=== PATIENT | male | born 1945 | race Caucasian/White ===

== ENCOUNTER → 2019-07-01 09:19 | Outpatient (CLI) | payer OTHER, SELFPAY ==
--- NOTE | 2019-07-01 | DI.US.S_ITS ---
PROCEDURE: US SOFT TISSUE HEAD AND NECK INDICATIONS: LOCALIZED SWELLING, MASS AND LUMP TECHNIQUE: Real-time scanning was performed of the neck region of interest, with image documentation. COMPARISON: None. FINDINGS: Multiple grayscale and color Doppler images of the neck and submandibular region were acquired targeting the patient directed area of interest which correlated with the midline submandibular region. There is a prominent lymph node measuring approximately 8 mm in AP dimension. This is oval in shape with uniform cortical thickening and visualization of a central fatty hilum. Additional prominent bilateral lymph nodes in the neck or visualized, largest on the right side measuring up to 9 mm in AP dimension. These are also oval in shape with uniform cortical thickening and preservation of a central fatty hilum. IMPRESSION: Prominent lymph node in the midline submandibular region correlating with palpable area of concern. There are similar, additional lymph nodes seen in the bilateral neck. Findings likely represent reactive lymph nodes from infectious/inflammatory process. Recommend clinical followup to document resolution. However, further evaluation with fine needle aspiration can be considered if symptoms persist or progress. Dictated by: Jasper Morejon M.D. on 07/01/2019 at 15:16 Approved by: Jasper Morejon M.D. on 07/01/2019 at 15:22
== END ==
PROVIDERS: PCP Family Medicine; Visit Provider Otolaryngology
DX: R59.0 Localized enlarged lymph nodes (principal)
CPT/HCPCS: 76536

== ENCOUNTER → 2019-08-20 07:55 | Outpatient (CLI) | payer OTHER, SELFPAY ==
--- NOTE | 2019-08-20 | DI.CT.S_ITS ---
PROCEDURE: CT SOFT TISSUE NECK W CON INDICATIONS: Follicular lymphoma, unspecified, unspecified site TECHNIQUE: After the administration of intravenous contrast, 3.0 mm axial sections acquired from the sella to the aortic arch. Additional oblique axial 3.0 mm sections acquired through the pharynx. 3 mm thick coronal and sagittal reformats were generated. For radiation dose reduction, the following was used: automated exposure control. COMPARISON: [facility], CT, CT CHEST ABD PEL W CON, 08/20/2019, 9:08. FINDINGS: Image quality: Excellent. Lymph nodes: Numerous enlarged supraclavicular lymph nodes are seen, with the largest solitary lymph node seen on the left measuring 15 x 11 mm, as on series 2 image 54. Numerous borderline prominent lymph nodes are seen throughout the neck. The largest solitary left level IIb lymph node measures 11 x 8 mm. There is partial visualization of dominant enlarged axillary lymph nodes. There is also partial visualization of enlarged mediastinal lymph nodes. Vessels: Visualized vasculature appears patent. Neck spaces: The oropharynx, nasopharynx, and pharynx demonstrate no mucosal lesions. The vocal cords, false vocal cords, pyriform sinuses, epiglottis, vallecula, and tongue base all appear normal. Extramucosal spaces appear unremarkable. Glands: The parotid and submandibular glands appear normal. Thyroid gland demonstrates no significant CT abnormality. Miscellaneous: Visualized brain and orbits appear normal. Lung apices appear clear. Superficial soft tissues appear normal. Bones: No suspicious bony lesions. Visualized sinuses and mastoids appear unremarkable. Age-appropriate bony degenerative changes are seen. There is fusion seen at the C5-C6 level. Please correlate with known patient history. IMPRESSION: Numerous enlarged and borderline prominent lymph nodes are seen throughout the neck as well as within the supraclavicular, mediastinal, and axillary regions, which are consistent with the given history of lymphoma. C5-C6 vertebral body fusion. Dictated by: Jack Landers M.D. on 08/20/2019 at 9:50 Approved by: Jack Landers M.D. on 08/20/2019 at 9:54
--- NOTE | 2019-08-20 08:13 | DI.CT.S_ITS ---
PROCEDURE: CT CHEST ABD PEL W CON INDICATIONS: Follicular lymphoma, unspecified, unspecified site TECHNIQUE: After the administration of oral and intravenous contrast, 5 mm thick sections acquired from the lung apices to the symphysis. 5 mm coronal and sagittal reformats were performed, with additional 7 mm coronal MIP reformats through the lungs. For radiation dose reduction, the following was used: automated exposure control, adjustment of mA and/or kV according to patient size. COMPARISON: None. FINDINGS: Image quality: Excellent. CHEST: Lungs and pleura: No acute airspace opacities. Tiny pleural based nodules in the lateral right upper and left upper lobes measuring up to 3.5 mm (3/158, 3/163). There is a triangular fissural nodule along the right minor fissure (3/191 measuring up to 5 mm. No other suspicious lung nodules or masses. No pleural effusions or pneumothorax. Central and peripheral airways appear patent and normal in caliber. Mediastinum: Heart size is normal. No pericardial effusion. Numerous minimally prominent superior mediastinal lymph nodes. Confluent subcarinal leonardo tissue. No hilar adenopathy. Multiple small right and left epicardial fat pad lymph nodes. Thoracic aorta and central pulmonary arteries are normal in size. Esophagus is normal in caliber. Small hiatal hernia. Chest wall: Numerous bulky bilateral axillary lymph nodes. Multiple moderately prominent distal cervical and supraclavicular lymph nodes.. Thyroid gland is normal. ABDOMEN: Solid organs: Liver is normal in size and enhancement. A few tiny rounded hypodensities are present in the liver too small to characterize, probably cysts. Gallbladder appears normal. Biliary system is non dilated. Pancreas enhances normally. The spleen is enlarged measuring approximately 15.6 x 12.5 x 6.7 cm. No adrenal nodules. Kidneys demonstrate normal size and enhancement, without hydronephrosis. Peritoneum and bowel: Bowel loops demonstrate normal wall thickness and caliber. The marked diverticulosis of the sigmoid colon. Normal appendix. No free fluid or air. Nodes and vessels: Numerous bulky periaortic retroperitoneal lymph nodes. One of the largest in the left periaortic retroperitoneum measures about 2 cm in short axis. Multiple nonenlarged mesenteric lymph nodes are present. Aorta and inferior vena cava are normal in size. Moderate calcific atherosclerosis. Miscellaneous: No ventral hernias. PELVIS: Genitourinary: Bladder wall thickness is normal. Prostate gland is moderately enlarged. Miscellaneous: A few bulky external iliac chain and bilateral inguinal lymph nodes are present. Small bilateral fat containing inguinal hernias.. Bones: No suspicious bony lesions. No vertebral body compression fractures. IMPRESSION: 1. Bulky abnormal adenopathy in the bilateral axillary regions, throughout the retroperitoneum, and in the external iliac and inguinal regions. 2. Numerous small lymph nodes in the distal cervical, supraclavicular, superior mediastinal, subcarinal, and mesenteric regions. 3. Splenomegaly. 4. Tiny pleural based pulmonary nodules and a small right middle lobe perifissural lymph node. These are likely incidental. 5. Sigmoid diverticulosis. 6. Prostatomegaly. Dictated by: Jess Echols M.D. on 08/20/2019 at 10:04 Approved by: Jess Echols M.D. on 08/20/2019 at 10:22
== END ==
PROVIDERS: PCP Family Medicine; Referring Provider Internal Medicine Hematology & Oncology; Visit Provider Internal Medicine Hematology & Oncology
DX: C82.11 Follicular lymphoma grade II, lymph nodes of head, face, and neck (principal); R59.1 Generalized enlarged lymph nodes; R91.8 Other nonspecific abnormal finding of lung field; R16.1 Splenomegaly, not elsewhere classified; N40.0 Benign prostatic hyperplasia without lower urinary tract symptoms; K57.30 Diverticulosis of large intestine without perforation or abscess without bleeding; K44.9 Diaphragmatic hernia without obstruction or gangrene; Z98.1 Arthrodesis status
CPT/HCPCS: 70491; 71260; 74177; Q9967

== ENCOUNTER → 2019-12-28 10:46 | Outpatient (CLI) | payer OTHER, SELFPAY ==
--- NOTE | 2019-12-28 | DI.CT.S_ITS ---
PROCEDURE: CT CHEST ABD PEL W CON INDICATIONS: Follicular lymphoma, unspecified, unspecified site TECHNIQUE: After the administration of oral and intravenous contrast, 5 mm thick sections acquired from the lung apices to the symphysis. 5 mm coronal and sagittal reformats were performed, with additional 7 mm coronal MIP reformats through the lungs. For radiation dose reduction, the following was used: automated exposure control, adjustment of mA and/or kV according to patient size. COMPARISON: [facility], CT, CT CHEST ABD PEL W CON, 08/20/2019, 9:08. FINDINGS: Image quality: Excellent. CHEST: Lungs and pleura: Small 0.3 cm pleural-based nodules in the right upper lobe on series 3 image 152 and in the left upper lobe on image 148 are stable in size. Small triangular nodule along the right minor fissure on image 187 measuring up to 0.4 cm is slightly decreased in size. No new suspicious nodules or mass lesions. There is mild dependent atelectasis. No pleural effusions or pneumothorax. Central and peripheral airways appear patent and normal in caliber. Mediastinum: Heart size is normal. No pericardial effusion. No mediastinal or hilar adenopathy by size criteria. There is decrease in size of the previously visualized enlarged mediastinal lymph nodes. Thoracic aorta and central pulmonary arteries are normal in size. Esophagus is normal in caliber. There is a small hiatal hernia. Chest wall: There is interval decrease in size of the bulky enlarged axillary nodes seen on the prior study. A sales representative consultant left axillary node on series 2, image 17 measures up to 0.9 cm in short axis compared to 2.0 cm previously. There is also interval decrease in size of the previously visualized mildly enlarged supraclavicular and lower cervical lymph nodes. No axillary or supraclavicular adenopathy by size criteria. Thyroid gland demonstrates no discrete nodules. ABDOMEN: Solid organs: A small hypodense focus in the inferior right hepatic lobe appears unchanged and likely represents a cyst. The gallbladder appears within normal limits without calcified gallstones. Biliary system is non-dilated. Pancreas enhances normally. No peripancreatic fat stranding or fluid collections. No pancreatic duct dilatation. The spleen is normal in size, decreased from the prior study. No adrenal nodules. Kidneys demonstrate no hydronephrosis. Peritoneum and bowel: Small bowel loops demonstrate normal wall thickness and caliber. There is colonic diverticulosis. Mild associated segmental wall thickening in the sigmoid colon with mild fat stranding is compatible with a mild colitis, possibly secondary to diverticulitis. No free fluid or air. Nodes and vessels: There is interval decrease in size of bulky retroperitoneal lymphadenopathy seen on the prior study. A sales representative consultant left periaortic node on series 2, image 73 measures up to 1.1 cm in short axis compared to 2.3 cm previously. Backshoe Person left external iliac node on image 107 measures up to 0.5 cm compared to 1.2 cm previously. Aorta and inferior vena cava are normal in size. Miscellaneous: No ventral hernias. PELVIS: Genitourinary: Bladder wall thickness is normal. There is heterogeneous enlargement of the prostate again noted. Miscellaneous: There is interval decrease in size previously visualized enlarged inguinal lymph nodes. A sales representative consultant left inguinal node on image 124 measures up to 0.9 cm in short axis compared to 1.4 cm previously. No inguinal hernias. Bones: No suspicious bony lesions. No vertebral body compression fractures. IMPRESSION: 1. Extensive interval decrease in size of adenopathy in the chest, abdomen, and pelvis consistent with partial response to therapy. 2. Stable small bilateral pleural-based nodules. 3. Mild segmental wall thickening in the sigmoid colon compatible with a mild colitis, possibly related to a mild diverticulitis. Dictated by: Adelfo Raymond M.D. on 12/28/2019 at 16:58 Approved by: Adelfo Raymond M.D. on 12/28/2019 at 17:17
--- NOTE | 2019-12-28 | DI.CT.S_ITS ---
PROCEDURE: CT SOFT TISSUE NECK W CON INDICATIONS: Follicular lymphoma, unspecified, unspecified site TECHNIQUE: After the administration of intravenous contrast, 3.0 mm axial sections acquired from the sella to the aortic arch. Additional oblique axial 3.0 mm sections acquired through the pharynx. 3 mm thick coronal and sagittal reformats were generated. For radiation dose reduction, the following was used: automated exposure control. COMPARISON: [facility], CT, CT SOFT TISSUE NECK W CON, 08/20/2019, 9:08. [facility], US, US SOFT TISSUE HEAD AND NECK, 07/01/2019, 10:10. FINDINGS: Image quality: Excellent. Lymph nodes: No enlarged lymph nodes seen throughout the neck. Extensive bilateral neck lymphadenopathy has resolved in the interval since prior exam of 03/04/2008/20/2019. Vessels: Visualized vasculature appears patent. Neck spaces: The oropharynx, nasopharynx, and pharynx demonstrate no mucosal lesions. The vocal cords, false vocal cords, pyriform sinuses, epiglottis, vallecula, and tongue base all appear normal. Extramucosal spaces appear unremarkable. Glands: The parotid and submandibular glands appear normal. Thyroid gland is normal. Miscellaneous: Visualized brain and orbits appear normal. Right chest wall Port-A-Cath. Lung apices appear clear. Superficial soft tissues appear normal. Bones: No suspicious bony lesions. Visualized sinuses and mastoids appear unremarkable. IMPRESSION: No lymphadenopathy based on size criteria. Dictated by: Nasreen Waggoner MD, PhD on 12/28/2019 at 16:17 Approved by: Nasreen Waggoner MD, PhD on 12/28/2019 at 16:23
[2019-12-28 11:34] LABS: BUN Creatinine Ratio 20.7 (6-22); Blood Urea Nitrogen 18 mg/dL (9-20); Calcium 9.3 mg/dL (8.4-10.2); Carbon Dioxide 29 mmol/L (22-32); Chloride 102 mmol/L (98-107); Estimated Glomerular Filt Rate > 60.0 mL/min (>60); Glucose 93 mg/dL (80-110); HEMOLYSIS < 15 (0-50); Potassium 4.2 mmol/L (3.4-5.1); Sodium 136 mmol/L (137-145)
== END ==
PROVIDERS: PCP Family Medicine; Referring Provider Internal Medicine Hematology & Oncology; Visit Provider Internal Medicine Hematology & Oncology
DX: C82.90 Follicular lymphoma, unspecified, unspecified site (principal); R91.8 Other nonspecific abnormal finding of lung field; J98.11 Atelectasis; K44.9 Diaphragmatic hernia without obstruction or gangrene; K57.90 Diverticulosis of intestine, part unspecified, without perforation or abscess without bleeding
CPT/HCPCS: 36415; 70491; 71260; 74177; 80048; Q9967